=== PATIENT | male | born 1945 | race Caucasian/White ===

== ENCOUNTER 2016-12-04 12:18 | Outpatient (CLI) | payer MEDICARE ==
[~2016-12-04] VITALS: Ht 185.4 cm; Wt 82.3 kg
[2016-12-04 14:30] VITALS: Ht 185.4 cm; Wt 82.3 kg
--- NOTE | 2016-12-04 16:08 | NUR ---
1445 BLOOD CHECKED AT BEDSIDE BY THIS NURSE AND FAISAL MCGARRY RN, INITIATED BY ALARIS PUMP AT 50/CC/HR. 1500 DENIES PROBLEMS WITH TRANSFUSION, RATE INCREASED TO 125/CC/HR 1515 BLOOD CONTINUES WITHOUT PROBLEMS. 1530 IV SITE PATENT. DENIES PROBLEMS, RATE INCREASED TO 200/CC/HR PT TALKING ON PHONE. 1545 PT. WITH VISITOR. BLOOD GOING WELL. DECLINED OFFER OF LIQUIDS.
--- NOTE | 2016-12-04 16:14 | NUR ---
1610 XRAY NOTIFIED OF ROOM NUMBER AND OF RENAL ULTRASOUND ORDER.
--- NOTE | 2016-12-04 19:13 | NUR ---
1700 XRAY HERE TO DO US OF RENALS. 1740 DENIES PROBLEMS WITH TRANSFUSION, IV DC'D WITH CATH INTACT. RELEASED AMB.
== END 2016-12-04 17:45 | disposition home or self-care (01) ==
LOC: D.OPS 12:18
DX: D63.1 Anemia in chronic kidney disease (principal); N18.4 Chronic kidney disease, stage 4 (severe)

== ENCOUNTER → 2017-03-14 13:22 | Outpatient (CLI) | payer MEDICARE ==
[2016-12-04 14:30] VITALS: BMI 23.9
== END | disposition home or self-care (01) ==
LOC: D.RAD 13:22
DX: M25.552 Pain in left hip (principal)

== ENCOUNTER 2017-06-09 11:57 | Inpatient (IN) | payer MEDICARE ==
[~2017-06-09] VITALS: Ht 185.4 cm; Wt 86.4 kg
[2017-06-09 12:44] LABS: BASOPHILS 0.4 % (0-2); EOSINOPHILS 1.1 % (0-7); HEMATOCRIT 28.4 % (42.0-54.0); HEMOGLOBIN 9.4 g/dL (13.5-17.5); IMMATURE GRANULOCYTES 0.5 % (0-5); LYMPHOCYTES 16.6 % (15-50); MCH 33.1 pg (26.0-34.0); MCHC 33.1 g/dL (31.0-37.0); MEAN PLATELET VOLUME 9.7 fL (7.4-10.4); MONOCYTES 7.1 % (2-11); NEUTROPHILS 74.3 % (40-80); PLATELET COUNT 130 10x3/uL (130-400); RBC 2.84 10x6/uL (4.20-6.10); RDW 12.3 % (11.5-14.5); WBC 5.5 10x3/uL (4.8-10.8)
[2017-06-09 13:08] LABS: ALBUMIN 4.1 g/dL (3.4-5.0); ANION GAP 20.8 mmol/L (8-16); BILIRUBIN - TOTAL 0.35 mg/dL (0.2-1.3); CALCIUM 8.7 mg/dL (8.5-10.1); CARBON DIOXIDE 21.1 mmol/L (21.0-32.0); CREATININE - SERUM 5.3 mg/dL (0.6-1.3); POTASSIUM - SERUM 4.9 mmol/L (3.5-5.1); PROTEIN - SERUM 7.7 g/dL (6.4-8.2)
[2017-06-09] MEDS ORDERED: METOPROLOL TART50 MG PO (17:18)
[2017-06-09] MEDS ORDERED: OMEPRAZOLE40 MG PO (17:18)
[2017-06-09] MEDS ORDERED: GLUCOPHAGE1000 MG PO (17:19)
[2017-06-09] MEDS ORDERED: HYDROCODONE-APA1 TAB PO (17:19)
[2017-06-09] MEDS ORDERED: GLUCOTROL ER2.5 MG PO (17:21)
[2017-06-09] MEDS ORDERED: HCTZ25 MG PO (17:21)
[2017-06-09] MEDS ORDERED: COUMADIN2.5 MG PO (17:23)
[2017-06-09 17:42] VITALS: BP 134/62; BMI 25.1
[2017-06-09 19:22] LABS: % SATURATION 44 % (15-55); IRON 115 ug/dl (35-150); TOTAL IRON BIND CAPACITY 257 ug/dl (260-445); UNSAT IRON BIND CAPACITY 142 ug/dl (150-375)
[2017-06-09 21:00] VITALS: BP 136/73
[2017-06-10 00:24] VITALS: BP 156/73
[2017-06-10 05:31] VITALS: BP 140/67
[2017-06-10 06:22] LABS: MCHC 33.5 g/dL (31.0-37.0); MCV 98.6 fL (80.0-100.0); MEAN PLATELET VOLUME 9.6 fL (7.4-10.4); PLATELET COUNT 115 10x3/uL (130-400); RDW 12.4 % (11.5-14.5)
[2017-06-10 06:23] LABS: HEMATOCRIT 21.8 % (42.0-54.0); RBC 2.21 10x6/uL (4.20-6.10); WBC 2.8 10x3/uL (4.8-10.8)
[2017-06-10 06:24] LABS: HEMOGLOBIN 7.3 g/dL (13.5-17.5)
[2017-06-10 06:36] LABS: ANION GAP 18.1 mmol/L (8-16); CARBON DIOXIDE 21.8 mmol/L (21.0-32.0); CREATININE - SERUM 5.3 mg/dL (0.6-1.3); MAGNESIUM - SERUM 1.2 mg/dL (1.8-2.4); PHOSPHOROUS 4.3 mg/dL (2.5-4.9); POTASSIUM - SERUM 3.9 mmol/L (3.5-5.1)
[2017-06-10 07:03] LABS: BASOPHILS 0 % (0-2); EOSINOPHILS 2.3 % (0-7); HEMATOCRIT 21.4 % (42.0-54.0); IMMATURE GRANULOCYTES 0.4 % (0-5); LYMPHOCYTES 22.7 % (15-50); MCH 33.2 pg (26.0-34.0); MCHC 33.6 g/dL (31.0-37.0); MCV 98.6 fL (80.0-100.0); MEAN PLATELET VOLUME 9.1 fL (7.4-10.4); MONOCYTES 9.4 % (2-11); NEUTROPHILS 65.2 % (40-80); RBC 2.17 10x6/uL (4.20-6.10); RDW 12.3 % (11.5-14.5); WBC 2.6 10x3/uL (4.8-10.8)
[2017-06-10 07:05] LABS: LYMPHOCYTES 33 % (15-50); MONOCYTES 5 % (2-11); NEUTROPHILS 62 % (40-80); PLATELET ESTIMATE DECREASED
[2017-06-10 07:06] LABS: HEMOGLOBIN 7.2 g/dL (13.5-17.5); PLATELET COUNT 89 10x3/uL (130-400)
[2017-06-10 08:00] VITALS: BP 149/69
[2017-06-10 11:50] VITALS: BP 136/64
[2017-06-10 13:47] LABS: APPEARANCE CLEAR (CLEAR); BILIRUBIN NEGATIVE (NEGATIVE); COLOR STRAW (YELLOW); GLUCOSE NEGATIVE (NEGATIVE); KETONE NEGATIVE (NEGATIVE); NITRITE NEGATIVE (NEGATIVE); PROTEIN NEGATIVE (NEGATIVE); UROBILINOGEN NORMAL (NORMAL)
[2017-06-10 13:49] LABS: BACTERIA MODERATE /hpf (NONE SEEN); EPITHELIAL CELLS 0-5 /hpf (0-5)
[2017-06-10 14:35] LABS: APTT 27.5 SECONDS (22.8-39.4); INR 1.45 (0.85-1.17); PROTIME 17.1 SECONDS (11.6-15.0)
[2017-06-10 15:11] VITALS: BP 170/80
[2017-06-11 05:18] VITALS: BP 140/68
[2017-06-11 06:24] LABS: BASOPHILS 0.4 % (0-2); EOSINOPHILS 2.9 % (0-7); IMMATURE GRANULOCYTES 0.4 % (0-5); LYMPHOCYTES 28.2 % (15-50); MCH 32.2 pg (26.0-34.0); MCHC 33.3 g/dL (31.0-37.0); MCV 96.7 fL (80.0-100.0); MEAN PLATELET VOLUME 9.7 fL (7.4-10.4); MONOCYTES 8.3 % (2-11); NEUTROPHILS 59.8 % (40-80); PLATELET COUNT 99 10x3/uL (130-400); RDW 14.5 % (11.5-14.5); WBC 2.8 10x3/uL (4.8-10.8)
[2017-06-11 06:30] LABS: ANION GAP 17.1 mmol/L (8-16); CALCIUM 7.5 mg/dL (8.5-10.1); CARBON DIOXIDE 20.7 mmol/L (21.0-32.0); CREATININE - SERUM 4.9 mg/dL (0.6-1.3); POTASSIUM - SERUM 3.8 mmol/L (3.5-5.1)
[2017-06-11 06:31] LABS: HEMATOCRIT 26.7 % (42.0-54.0); HEMOGLOBIN 8.9 g/dL (13.5-17.5); RBC 2.76 10x6/uL (4.20-6.10)
[2017-06-11 10:52] VITALS: BP 152/87
[2017-06-11 13:18] VITALS: Ht 185.4 cm; Wt 86.4 kg
[2017-06-11] MEDS ORDERED: LEVAQUIN500 MG PO (15:00)
[2017-06-12 07:28] LABS: FOLATE (FOLIC ACID) - SERUM >20.0 ng/mL (>3.0)
[2017-06-12 10:22] LABS: ERYTHROPOIETIN 24.7 mIU/mL (2.6-18.5)
[2017-06-12 13:16] LABS: SPE - A/G RATIO 1.5 (0.7-1.7); SPE - ALBUMIN 3.1 g/dL (2.9-4.4); SPE - ALPHA-1 GLOBULIN 0.2 g/dL (0.0-0.4); SPE - ALPHA-2 GLOBULIN 0.7 g/dL (0.4-1.0); SPE - BETA GLOBULIN 0.7 g/dL (0.7-1.3); SPE - GAMMA GLOBULIN 0.5 g/dL (0.4-1.8); SPE - M-SPIKE Not Observed g/dL (Not Observed); SPE - TOTAL PROTEIN 5.2 g/dL (6.0-8.5)
== END 2017-06-11 16:09 | disposition home or self-care (01) | DRG 683 ==
LOC: D.ER 11:57 → D.EDHOLD 15:20 → D.M2 15:20 → D.EDHOLD 15:29 → D.SDCHOLD 15:29 → D.M2 16:02
PROVIDERS: Family Medicine; Internal Medicine Hematology & Oncology; Internal Medicine Nephrology
DX: I12.9 Hypertensive chronic kidney disease with stage 1 through stage 4 chronic kidney disease, or unspecified chronic kidney disease (principal); N39.0 Urinary tract infection, site not specified; N18.4 Chronic kidney disease, stage 4 (severe); D61.818 Other pancytopenia; D63.1 Anemia in chronic kidney disease; E11.22 Type 2 diabetes mellitus with diabetic chronic kidney disease; D53.9 Nutritional anemia, unspecified; E83.42 Hypomagnesemia

== ENCOUNTER 2017-07-11 07:32 | Day surgery (SDC) | payer MEDICARE ==
[~2017-07-11] VITALS: Ht 185.4 cm; Wt 85.3 kg
--- NOTE | ~2017-07-11 | OP ---
PATIENT NAME: RYAN TIPTON JR MEDICAL RECORD: [id number] :46 LOCATION:D[facility] ED ADMISSION DATE: SURGEON: ANNALISA PALM MD DATE OF OPERATION: 07/11/2017 REFERRING PHYSICIAN: Ramona Ray MD PRIMARY CARE PHYSICIAN: Cesar Neff MD PREOPERATIVE DIAGNOSIS: Chronic kidney disease stage IV. POSTOPERATIVE DIAGNOSIS: Chronic kidney disease stage IV. OPERATION PERFORMED: Creation of a Layla type brachiobasilic AV fistula as the first of 2 planned operations to create a translocated basilic vein AV fistula. ANESTHESIA: General with LMA per DEVOPS SOLUTIONS ARCHITECT. SURGEON: Annalisa Palm MD PREOPERATIVE NOTE: Mr. Tipton is a 71-year-old white male patient from [place], [place] who has progressing chronic renal impairment. He is followed by Dr. Ramona Ray and Dr. Neff. He was referred to me for hemodialysis access in anticipation of a coming need. Under general anesthesia with LMA per [employer]OPS SOLUTIONS ARCHITECT, the patient was prepped and draped in sterile manner. His basilic vein in the forearm and around the elbow was visible and appeared to be a suitable conduit for fistula. I placed a Mears drain as a proximal venous tourniquet and applied nitroglycerin paste to the intact skin of his arm and forearm and then examined him with Duplex ultrasound. Indeed the basilic vein was really the only satisfactory vein to use, the brachial artery was of good caliber and without atherosclerotic changes. I made a longitudinal incision on the medial aspect of the arm and its lower third and then in a hockey-stick like pattern, this was converted to a short transverse incision approaching the antecubital space. The basilic vein was exposed with sharp dissection. Tributaries were divided between Vicryl ties and Hemoclips. The brachial artery was then exposed and dissected from the surrounding structures and it was controlled proximally and distally with Silastic loops. The vein was clamped and then ligated distally with 3-0 Vicryl and it was transected and bevelled. It was then flushed with heparinized saline and checked for leaks and hydrostatically dilated. The artery was occluded and an arteriotomy about 7 mm in length was made and the artery was also flushed with heparinized saline. Both vessels were treated with topical papaverine. The end of the vein was then sutured to the side of the artery with continuous running 7-0 Prolene. After completing this anastomosis and the clamps and loops were released, the suture line was hemostatic and there developed immediately excellent flow with a thrill and pulsation within the fistula. The wound was irrigated and then infiltrated with 0.25% Marcaine without epinephrine. The wound was closed with interrupted inverted 3-0 Vicryl and running intracuticular 4-0 Monocryl and Dermabond glue. It was dressed with Maxorb Ag, Tegaderm and Cavilon skin prep. The patient was awakened and in a stable condition taken to the recovery room. There was no blood loss during the procedure. All sponges, instruments and OPERATIVE REPORT [id number] RYAN TIPTON JR needles were accounted for. No drain was used and no surgical specimen was submitted for histopathology. PLAN: The patient will be returned to the outpatient department shortly. He will be discharged to home when meets criteria. He will resume activities as tolerated and take his medications as preop and resume activities as desired. He is to leave the original operative dressing intact until he returns to see me in my office next week for his first postop followup appointment and that will be arranged by the outpatient nurses prior to his going home today. My plan will be to return him to the operating room within 2-4 weeks for the second stage to creation of the translocated fistula. TRANSINT:[id number] Voice Confirmation ID: [id number] DOCUMENT ID: [id number] ANNALISA PALM MD at 1241 CC: CESAR NEFF and RAMONA RAY [id number] DICTATION DATE: 07/11/17 1335 WAFER MOUNTER: 07/11/17 1435 [facility] 07/11/17 [id number] [place] [address]
[~2017-07-11 07:32] MED LIST: COUMADIN2.5 MG PO; GLUCOPHAGE1000 MG PO; GLUCOTROL ER2.5 MG PO; HCTZ25 MG PO; HYDROCODONE-APA1 TAB PO; LEVAQUIN500 MG PO; METOPROLOL TART50 MG PO; OMEPRAZOLE40 MG PO
[2017-07-11 08:09] LABS: BASOPHILS 0.4 % (0-2); HEMATOCRIT 30.6 % (42.0-54.0); HEMOGLOBIN 10.6 g/dL (13.5-17.5); IMMATURE GRANULOCYTES 0.4 % (0-5); LYMPHOCYTES 22.8 % (15-50); MCH 33.4 pg (26.0-34.0); MCHC 34.6 g/dL (31.0-37.0); MCV 96.5 fL (80.0-100.0); MEAN PLATELET VOLUME 9.8 fL (7.4-10.4); MONOCYTES 6.6 % (2-11); NEUTROPHILS 67.8 % (40-80); RBC 3.17 10x6/uL (4.20-6.10); RDW 13.7 % (11.5-14.5); WBC 5.6 10x3/uL (4.8-10.8)
[2017-07-11 08:11] LABS: PLATELET COUNT 129 10x3/uL (130-400)
[2017-07-11 08:21] LABS: INR 0.99 (0.85-1.17); PROTIME 12.7 SECONDS (11.6-15.0)
[2017-07-11 08:22] LABS: APTT 32.6 SECONDS (22.8-39.4)
[2017-07-11] MEDS ORDERED: FOLATE0.4 MG PO (08:31)
[2017-07-11] MEDS ORDERED: GLUCOTROL 5 MG T5 MG PO (08:32)
[2017-07-11 08:36] VITALS: BP 143/50; Ht 185.4 cm; Wt 85.3 kg
[2017-07-11 08:46] LABS: ANION GAP 23.2 mmol/L (8-16); CALCIUM 8.7 mg/dL (8.5-10.1); CARBON DIOXIDE 18.6 mmol/L (21.0-32.0); CREATININE - SERUM 5.7 mg/dL (0.6-1.3); POTASSIUM - SERUM 3.8 mmol/L (3.5-5.1)
[2017-07-11] MEDS ORDERED: ULTRAM50 MG PO (13:22)
== END 2017-07-11 14:40 | disposition home or self-care (01) ==
LOC: D.OPS 07:32
PROVIDERS: Surgery
DX: E11.22 Type 2 diabetes mellitus with diabetic chronic kidney disease (principal); I12.0 Hypertensive chronic kidney disease with stage 5 chronic kidney disease or end stage renal disease; N18.5 Chronic kidney disease, stage 5; Z99.2 Dependence on renal dialysis; Z01.812 Encounter for preprocedural laboratory examination

== ENCOUNTER 2017-08-19 05:29 | Day surgery (SDC) | payer MEDICARE ==
[~2017-08-19] VITALS: Ht 185.4 cm; Wt 85.3 kg
--- NOTE | ~2017-08-19 | OP ---
PATIENT NAME: RYAN TIPTON JR MEDICAL RECORD: [id number] :47 LOCATION:D[facility] ADMISSION DATE: SURGEON: ANNALISA PALM MD DATE OF OPERATION: 08/19/2017 PREOPERATIVE DIAGNOSIS: Chronic kidney disease V. POSTOPERATIVE DIAGNOSIS: Chronic kidney disease V. COMORBIDITIES: Hypertension and diabetes. REFERRING PHYSICIAN: Ramona Ray MD OPERATION PERFORMED: Second stage creation of left brachial artery to translocated basilic vein arteriovenous fistula. SURGEON: Annalisa Palm MD ANESTHESIA: General per TRANSPORTATION JOB TITLES with LMA. PREOPERATIVE NOTE: Mr. Tipton is a 71-year-old white male patient who is status post first stage creation of a translocated fistula on the left arm several weeks ago. I created a Layla type brachiobasilic fistula that has dilated and performed very nicely to this point. He is brought to the operating room now again as an outpatient with plans to go ahead and complete the translocation and reanastomosis. DESCRIPTION OF PROCEDURE: Under general anesthesia in supine position, the patient's left arm was prepped and draped in a sterile manner. An incision was made from axilla to antecubital space and the basilic vein fully mobilized. There was only one large communicating or perforating vein present which was multiply ligated and divided. The dissection was extended as far distally as the arterial anastomosis and a little bit of extra vein towards the antecubital space was harvested to give us some extra length. The vein was distally ligated and divided and a vascular clamp placed across the vein just proximal to the AA. The vein was flushed with heparinized saline and treated with topical papaverine. It was placed in a semilunar, very superficial subcutaneous tunnel, being careful to keep it from twisting and an end-to-end anastomosis done to the vein just above the original arterial anastomosis. This anastomosis was done with 7-0 Prolene and when completed and the occluding clamp was released, the suture line was hemostatic. There did not appear to be any indentation or stenosis. The fistula functioned beautifully, palpably and by handheld Doppler. The arm was irrigated with Ancef and gentamicin solution and infiltrated with 0.25% Marcaine without epinephrine. The wound was closed with a few interrupted inverted 3-0 Vicryl and running intracuticular 4-0 Monocryl, Dermabond glue and Maxorb AG, then Cavilon and Tegaderm. The patient was awakened and taken to the recovery room. Blood loss was about 30-50 cc and was certainly unreplaced. All sponges, instruments and needles were accounted for. No drain was used and no surgical specimen was submitted for histopathology. PLAN: The patient will be discharged to home today. We will ask home health to see him 3 times a week and change his dressing, clean his incision with Hibiclens and cover with clean dry gauze. He will come back to see me in my OPERATIVE REPORT [id number] RYAN TIPTON JR office in 2 weeks. He is given a prescription for Capitola 5/325, #20, one p.o. q.4 hours p.r.n. for pain, no refills of course. I will see him in my office in 2 weeks. TRANSINT:[id number] Voice Confirmation ID: [id number] DOCUMENT ID: [id number] ANNALISA PALM MD at 1544 CC: RAMONA RAY [id number] DICTATION DATE: 08/19/17 1020 DAYTIME CAREGIVER: 08/19/17 1140 [facility] 08/19/17 [facility] [address] [place] [address]
[~2017-08-19 05:29] MED LIST changes: +FOLATE0.4 MG PO; +GLUCOTROL 5 MG T5 MG PO; +ULTRAM50 MG PO
[2017-08-19 06:08] LABS: BASOPHILS 0.2 % (0-2); EOSINOPHILS 2.1 % (0-7); HEMATOCRIT 27.4 % (42.0-54.0); HEMOGLOBIN 9.1 g/dL (13.5-17.5); IMMATURE GRANULOCYTES 0.2 % (0-5); MCH 33.3 pg (26.0-34.0); MCHC 33.2 g/dL (31.0-37.0); MCV 100.4 fL (80.0-100.0); MEAN PLATELET VOLUME 9.7 fL (7.4-10.4); MONOCYTES 8.4 % (2-11); NEUTROPHILS 65.1 % (40-80); RBC 2.73 10x6/uL (4.20-6.10); RDW 13.7 % (11.5-14.5); WBC 4.3 10x3/uL (4.8-10.8)
[2017-08-19 06:20] LABS: PLATELET COUNT 103 10x3/uL (130-400)
[2017-08-19 06:33] LABS: INR 1.02 (0.85-1.17)
[2017-08-19 06:34] LABS: APTT 39.5 SECONDS (22.8-39.4)
[2017-08-19 06:41] LABS: ANION GAP 19.4 mmol/L (8-16); CALCIUM 8.8 mg/dL (8.5-10.1); CARBON DIOXIDE 20.6 mmol/L (21.0-32.0); CREATININE - SERUM 4.8 mg/dL (0.6-1.3)
[2017-08-19 06:52] VITALS: Ht 185.4 cm; Wt 85.3 kg
[2017-08-19] MEDS ORDERED: HYDROCODON-ACE1 EAC7 PO (10:08)
== END 2017-08-19 12:15 | disposition home or self-care (01) ==
LOC: D.OPS 05:29
PROVIDERS: Internal Medicine Nephrology
DX: E11.22 Type 2 diabetes mellitus with diabetic chronic kidney disease (principal); I12.0 Hypertensive chronic kidney disease with stage 5 chronic kidney disease or end stage renal disease; N18.5 Chronic kidney disease, stage 5; Z01.812 Encounter for preprocedural laboratory examination

== ENCOUNTER → 2017-10-17 13:27 | Outpatient (CLI) | payer MEDICARE ==
[2017-08-19 06:52] VITALS: BMI 24.8
[~2017-10-17 13:27] MED LIST changes: +HYDROCODON-ACE1 EAC7 PO
== END | disposition home or self-care (01) ==
LOC: D.US 13:27
DX: M79.661 Pain in right lower leg (principal); M79.662 Pain in left lower leg

== ENCOUNTER 2020-05-22 12:29 | Observation (INO) | payer MEDICARE ==
[~2020-05-22] VITALS: Ht 185.4 cm; Wt 75.5 kg
[~2020-05-22 12:29] MED LIST changes: +AZITHROMYCIN500 MG PO; +MUCINEX600 MG PO; +OMNICEF300 MG PO; +TESSALON PERLE100 MG PO
[2020-05-22] MEDS ORDERED: HTN MED? (12:37)
[2020-05-22] MEDS ORDERED: HYDROCODON-ACE1 EA10 PO (12:38)
[2020-05-22] MEDS ORDERED: GLUCOTROL ER2.5 MG PO (12:38)
[2020-05-22 13:25] LABS: ANION GAP 22.4 mmol/L (8-16); CALCIUM 8.8 mg/dL (8.5-10.1); CREATININE - SERUM 5.6 mg/dL (0.6-1.3); POTASSIUM - SERUM 3.4 mmol/L (3.5-5.1)
[2020-05-22 13:31] LABS: ALBUMIN 2.9 g/dL (3.4-5.0); BILIRUBIN - TOTAL 0.45 mg/dL (0.2-1.3); PROTEIN - SERUM 5.6 g/dL (6.4-8.2)
[2020-05-22 13:38] LABS: LYMPHOCYTE ABS# 0.85 10x3/uL (1.32-3.57); MCH 33.9 pg (26.0-34.0); MCHC 32.1 g/dL (31.0-37.0); MCV 105.5 fL (80.0-100.0); MEAN PLATELET VOLUME 9.1 fL (7.4-10.4); NEUTROPHIL ABS# 1.74 10x3/uL (1.78-5.38); PLATELET COUNT 93 10x3/uL (130-400); RDW 17.6 % (11.5-14.5); WBC 2.9 10x3/uL (4.8-10.8)
[2020-05-22 13:39] LABS: RBC 1.83 10x6/uL (4.20-6.10)
[2020-05-22 13:40] LABS: HEMATOCRIT 19.3 % (42.0-54.0); HEMOGLOBIN 6.2 g/dL (13.5-17.5)
[2020-05-22 14:41] LABS: BASOPHILS 1 % (0-2); LYMPHOCYTES 24 % (15-50); MONOCYTES 6 % (2-11); NEUTROPHILS 68 % (40-80)
[2020-05-22 14:42] LABS: PLATELET ESTIMATE DECREASED; ROULEAUX OCC
--- NOTE | 2020-05-22 15:08 | NUR ---
INITIATED 1ST UNIT OF PRBCS AT 125 ML/HR. WILL MONITOR.
--- NOTE | 2020-05-22 15:15 | NUR ---
PT. SANDRA. PRBCS WITHOUT ANY S/SX OF A REACTION. WILL CONT. TO MONITOR.
[2020-05-22 15:25] LABS: BILIRUBIN NEGATIVE (NEGATIVE); KETONE NEGATIVE (NEGATIVE); NITRITE NEGATIVE (NEGATIVE); UROBILINOGEN NORMAL mg/dL (< 2)
[2020-05-22 15:27] LABS: BACTERIA MANY HPF (NONE SEEN); WHITE CELLS - URINE >50 HPF (0-1)
[2020-05-22 16:42] VITALS: BP 140/75
--- NOTE | 2020-05-22 17:00 | NUR ---
PT ARRIVED VIA STRETCHER AT THIS TIME, RR EVEN NON LABORED. 1ST UNIT OF BLOOD COMPLETING UPON ARRIVAL. IV INFUSING WITHOUT DIFFICULTY. PT AAOX3, PLEASANT AND ANSWERS QUESTIONS APPROP. PLACED NON SKID SOCKS ON PT, PT REFUSED SCDS. EDUCATION GIVEN AT THIS TIME. TELE PLACED ON PT PER ORDER. PT DENIES ANY PAIN AT THIS TIME.
[2020-05-22] MEDS ORDERED: FUROSEMIDE20 MG (17:02)
[2020-05-22 17:04] VITALS: BP 143/76
--- NOTE | 2020-05-22 17:15 | NUR ---
2ND UNIT OF PRBC INTITIATED AT THIS TIME. PT LYING IN BED WITH HOB RAISED, RR EVEN NON LABORED. NO NEEDS VOICED. NURSE AT BEDSIDE.
[2020-05-22 17:16] LABS: INR 0.97 (0.85-1.17); PROTIME 11.9 SECONDS (11.6-15.0)
[2020-05-22 17:27] LABS: % SATURATION 48 % (15-55); IRON 81 ug/dl (35-150); TOTAL IRON BIND CAPACITY 168 ug/dl (260-445); UNSAT IRON BIND CAPACITY 87 ug/dl (150-375)
--- NOTE | 2020-05-22 17:30 | NUR ---
VS STABLE, RR EVEN NON LABORED. PRBC INFUSING WITHOUT DIFFICULTY. PT DENIES ANY NEEDS AT THIS TIME. CLWR.
[2020-05-22 19:06] VITALS: BP 122/60
--- NOTE | 2020-05-22 22:29 | NUR ---
PATIENT LYING SUPINE AAOX4, RESP EVEN AND NON LABORED, RESP EVEN AND NON LABORED, WATER AND CRACKERS PROVIDED, MEDICATIONS ADMINISTERED WITHOUT COMPLIACTIONS, NO FURTHER NEEDS AT THIS TIME, CLIR, BLP
[2020-05-22 22:36] LABS: HEMOGLOBIN 7.7 g/dL (13.5-17.5)
[2020-05-22 23:22] VITALS: BP 145/70
--- NOTE | 2020-05-23 00:58 | NUR ---
SCD'S REFUSED, PATIENT EDUCATION PROVIDED, PATIENT STILL REFUSED SCD'S.
--- NOTE | 2020-05-23 03:44 | NUR ---
I have reviewed this patient and I concur with the Shift Assessment completed by the Licensed Practical Nurse today this shift.
[2020-05-23 04:51] LABS: BASOPHILS 0.4 % (0-2); EOSINOPHILS 3.4 % (0-7); HEMATOCRIT 23.6 % (42.0-54.0); HEMOGLOBIN 7.8 g/dL (13.5-17.5); IMMATURE GRANULOCYTES 0.9 % (0-5); LYMPHOCYTE ABS# 0.45 10x3/uL (1.32-3.57); LYMPHOCYTES 19.1 % (15-50); MCH 31.8 pg (26.0-34.0); MCHC 33.1 g/dL (31.0-37.0); MEAN PLATELET VOLUME 9.1 fL (7.4-10.4); NEUTROPHIL ABS# 1.65 10x3/uL (1.78-5.38); NEUTROPHILS 70.2 % (40-80); PLATELET COUNT 81 10x3/uL (130-400); RDW 20.2 % (11.5-14.5); WBC 2.4 10x3/uL (4.8-10.8)
[2020-05-23 05:05] LABS: MCV 96.3 fL (80.0-100.0); RBC 2.45 10x6/uL (4.20-6.10)
[2020-05-23 05:11] LABS: ALBUMIN 2.6 g/dL (3.4-5.0); ANION GAP 18.8 mmol/L (8-16); BILIRUBIN - TOTAL 0.45 mg/dL (0.2-1.3); CALCIUM 8.1 mg/dL (8.5-10.1); CARBON DIOXIDE 16.1 mmol/L (21.0-32.0); CREATININE - SERUM 5.3 mg/dL (0.6-1.3); MAGNESIUM - SERUM 1.5 mg/dL (1.8-2.4); PROTEIN - SERUM 5.1 g/dL (6.4-8.2)
[2020-05-23 05:15] LABS: POTASSIUM - SERUM 2.9 mmol/L (3.5-5.1)
--- NOTE | 2020-05-23 06:10 | NUR ---
PATIENT HAS A CRITICAL GLUCOSE LAB OF 34, ORANGE JUICE WITH SUGAR PACKETS ADMINISTERED, GLUCOSE RECHECKED AND IS 38, ORANGE JUICE PROVIDED WITH TONY WADDELL AND STAT LAB ORDERED.
--- NOTE | 2020-05-23 06:59 | NUR ---
PT GIVEN PO GLUCOSE PER PROTOCOL FOR LOW BLOOD SUGAR. PT AWAKE AND ALERT, SITTING UP IN BED. RR EVEN NON LABORED, NO DISTRESS NOTED.
--- NOTE | 2020-05-23 07:44 | NUR ---
AM MEDS GIVEN PER EMAR. PT SITTING UP IN BED WATCHING TV. RR EVEN NON LABORED. FSBS OBTAINED BEING 87. NO NEEDS VOICED AT THIS TIME. PT EDUCATED REGARDING SCDS AND THE PURPOSE OF. PT REFUSED. WILL CONTINUE TO MONITOR. CLWR.
--- NOTE | 2020-05-23 07:47 | NUR ---
HORACE ESCALANTE NOTIFIED REGARDING PT REFUSAL OF SCDS. EDUCATION GIVEN.
[2020-05-23 08:05] VITALS: BP 141/66
--- NOTE | 2020-05-23 08:30 | NUR ---
IN PREVIOUS ASSESSMENT, PT IS LEFT ARM RESERVE.
--- NOTE | 2020-05-23 09:30 | NUR ---
PT REMOVED IV TO RIGHT AC BY ACCIDENT WHEN REPOSITIONING IN THE BED, CATHETER INTACT. DRESSING APPLIED. PT REFUSED WANTING IV PLACED AT THIS TIME, WILL ATTEMPT LATER. NO FURTHER NEEDS VOICED.
--- NOTE | 2020-05-23 10:01 | NUR ---
SPOKE WITH PT REGARDING DIAYLSIS TODAY, PT STATES HE DID NOT WANT DIALYSIS HERE AND HE WANTED TO GO HOME. CALLED PT DAUGHTER AND EXPLAINED SITUATION, SHE STATES SHE IS COMING TO THE HOSPITAL. JANIE BARRIOS AT THIS TIME ALSO.
--- NOTE | 2020-05-23 10:10 | NUR ---
DENIS COMING TO SPEAK TO PT
[2020-05-23 10:22] LABS: HEMATOCRIT 24.2 % (42.0-54.0); HEMOGLOBIN 8.2 g/dL (13.5-17.5)
[2020-05-23 11:19] VITALS: Ht 185.4 cm; Wt 75.5 kg
[2020-05-23 12:03] VITALS: BP 92/36
--- NOTE | 2020-05-23 12:42 | NUR ---
SPOKE WITH PT DAUGHTER AT THIS TIME. PT AGIGATED AND WANTING TO GO HOME. MD SPOKE WITH PT REGARDING PLAN OF CARE. NO NEEDS VOICED BY PT. LIGHTS TURNED OFF AND HEAD LOWERED PER REQUEST. CLWR.
[2020-05-23 15:46] VITALS: BP 121/63
[2020-05-23 16:10] LABS: HEMATOCRIT 23.5 % (42.0-54.0); HEMOGLOBIN 7.8 g/dL (13.5-17.5)
--- NOTE | 2020-05-23 17:15 | NUR ---
PT LYING IN BED WITH HOB RAISED EATING DINNER TRAY. RR EVEN NON LABORED. NO NEEDS VOICED. CLWR.
[2020-05-23 19:53] VITALS: BP 128/65
[2020-05-23 21:35] LABS: HEMOGLOBIN 7.7 g/dL (13.5-17.5)
--- NOTE | 2020-05-23 23:56 | NUR ---
PATIENT LYING SUPINE AAOX4, RESP EVEN AND NON LABORED, NO S/S OF DISTRESS, MEDICATIONS ADMINISTERED, BLOOD SUGAR 58, ORANGE JUICE AND 1 TUBE OF DEXTROSE GIVEN, CLIR, BLP
--- NOTE | 2020-05-24 04:45 | NUR ---
PATIENT REFUSED VITALS AND BLOOD SUGAR CHECK, PATIENT EDUCATED ON IMPORTANCE OF BOTH AND STILL REFUSED. ADALID BONILLA
--- NOTE | 2020-05-24 05:08 | NUR ---
PATIENT REFUSED TO LET LAB DRAW BLOOD, PATIENT EDUCATED ON IMPORTANCE OF LAB DRAWS, PATIENT STILL REFUSED, ADALID BONILLA
--- NOTE | 2020-05-24 07:52 | NUR ---
FSBS OBTAINED BEING 34. PROTOCOL FOLLOWED. PT AAOX3, PLEASANT. PT DENIES FEELING HYPOGLYCEMIC. PT GIVEN PO GLUCOSE AND JUICE. WILL CNTINUE TO MONITOR.
[2020-05-24 08:10] VITALS: BP 140/67
--- NOTE | 2020-05-24 08:15 | NUR ---
ATTEMPTED IV X2, UNSUCCESSFUL. WILL HAVE ANOTHER NURSE ATTEMPT
[2020-05-24 08:42] LABS: HEMATOCRIT 24.9 % (42.0-54.0); HEMOGLOBIN 8.3 g/dL (13.5-17.5); LYMPHOCYTE ABS# 0.53 10x3/uL (1.32-3.57); MCH 32.4 pg (26.0-34.0); MCHC 33.3 g/dL (31.0-37.0); MCV 97.3 fL (80.0-100.0); MEAN PLATELET VOLUME 9.4 fL (7.4-10.4); NEUTROPHIL ABS# 1.99 10x3/uL (1.78-5.38); PLATELET COUNT 91 10x3/uL (130-400); RBC 2.56 10x6/uL (4.20-6.10); RDW 20.8 % (11.5-14.5); WBC 2.8 10x3/uL (4.8-10.8)
[2020-05-24 09:05] LABS: ANION GAP 18.9 mmol/L (8-16); CALCIUM 8.4 mg/dL (8.5-10.1); CARBON DIOXIDE 14.5 mmol/L (21.0-32.0); CREATININE - SERUM 5.3 mg/dL (0.6-1.3)
[2020-05-24 09:11] LABS: ALBUMIN 2.8 g/dL (3.4-5.0); BILIRUBIN - TOTAL 0.34 mg/dL (0.2-1.3); MAGNESIUM - SERUM 1.6 mg/dL (1.8-2.4); PROTEIN - SERUM 5.4 g/dL (6.4-8.2)
[2020-05-24 09:14] LABS: POTASSIUM - SERUM 3.4 mmol/L (3.5-5.1)
--- NOTE | 2020-05-24 09:20 | NUR ---
NEW IV STARTED TO RIGHT UPPER ARM. IV FLUIDS AND ANTIBIOTIC INITIATED PER EMAR. PT LYING IN BED WITH HOB RAISED, VISITOR AT BEDSIDE. RR EVEN NON LABORED. ISNTRUCTED REGARDING IS. NO NEEDS VOICED. CLWR.
--- NOTE | 2020-05-24 09:23 | NUR ---
GLUCOSE PER LAB DRAW 48. PT RECEIVING IV D5W PER EMAR. PT AAOX3, WILL CONTINUE TO MONITOR.
--- NOTE | 2020-05-24 09:25 | NUR ---
NOTIFIED GABY DILLON REGARDING CRITICAL LAB VALUES.
--- NOTE | 2020-05-24 10:07 | NUR ---
FSBS 127 AT THIS TIME. PT RESTING IN BED WATCHING TV. NO NEEDS VOICED AT THIS TIME. CLWR.
--- NOTE | 2020-05-24 10:34 | NUR ---
IV TO RIGHT UPPER ARM INFILTRATED. IV REMOVED, DRESSING APPLIED. CATHETER INTACT.
--- NOTE | 2020-05-24 10:39 | NUR ---
SPOKE WITH SANDY AT THIS TIME REGARDING PT IV AND MULTIPLE ATTEMPTS PRIOR. SHE STATES SHE WILL SPEAK TO MD AT SEE WHAT HE WANTS TO DO NEXT.
[2020-05-24] MEDS ORDERED: VITAMIN B-1100 M1 PO (10:51)
[2020-05-24] MEDS ORDERED: NEPHRO-VITE RX1 TAB PO (10:51)
[2020-05-24] MEDS ORDERED: FLAGYL500 MG PO (10:52)
[2020-05-24] MEDS ORDERED: LEVOFLOXACIN500 MG PO (10:52)
--- NOTE | 2020-05-24 10:56 | NUR ---
PER SANDY PT DOES NOT NEED IV RESTARTED. PT WILL DO DIALYSIS TODAY AND POSSIBLY BE D/C'D HOME AND WILMA SPOKE WITH PT REGARDING BONE BIOPSY BEING COMPLETED OUTPATIENT. PT REQUESTED THAT. NO NEEDS VOICED BY PT. CLWR.
--- NOTE | 2020-05-24 11:29 | NUR ---
SPOKE WITH PT REGARDING D/C PLAN. PT UNDERSTANDS HE WILL RECEIVE DIALYSIS AND THEN BE D/C HOME.
[2020-05-24 11:38] VITALS: BP 143/66
--- NOTE | 2020-05-24 11:48 | NUR ---
PT TAKEN VIA WHEELCHAIR TO DIALYSIS AT THIS TIME.
--- NOTE | 2020-05-24 12:07 | NUR ---
SPOKE WITH PT DAUGHTER REGARDING PLAN OF CARE AND D/C PLAN.
--- NOTE | 2020-05-24 13:04 | NUR ---
LUNCH TRAY TAKEN TO PT AT THIS TIME. PT SLEEPING ON LEFT SIDE, RR EVEN NON LABORED. PT RECEIVING DIALYSIS AT THIS TIME.
[2020-05-24 14:34] LABS: ANISOCYTOSIS OCC; LYMPHOCYTES 22 % (15-50); MONOCYTES 8 % (2-11); NEUTROPHILS 70 % (40-80); PLATELET ESTIMATE DECREASED
--- NOTE | 2020-05-24 14:47 | NUR ---
PT OFF UNIT IN HD AT THIS TIME
--- NOTE | 2020-05-24 15:40 | NUR ---
PT ARRIVED TO UNIT, D/C INSTRUCTIONS GIVEN AT THIS TIME REGARDING FOLLOW UP APPOINTMENTS AND MEDICATIONS. PT STATES UNDERSTANDING. NO NEEDS VOICED AT THIS TIME. PT CALLED SON IN [place] FOR CLOTHING AND TRASPORTATION HOME. CLWR.
--- NOTE | 2020-05-24 16:35 | NUR ---
PT FAMILY ARRIVED FOR TRANSPORTATION HOME. ALL BELONGINGS GATHERED AT THIS TIME. NO IV TO D/C.
--- NOTE | 2020-05-24 16:40 | NUR ---
PT WHEELED TO PRIVATE VEHICLE WITH PCT AT THIS TIME, ALL BELONGINGS WITH PT TIME OF D/C. NO DISTRESS NOTED ON DEPARTURE.
--- NOTE | 2020-05-24 16:57 | MORECARE ---
CASE MANAGEMENT DISCHARGE SUMMARY PATIENT: RYAN TIPTON JR UNIT: [id number] ADM DATE: 05/22/20 AGE: 74 : 46 SEX: M ROOM/BED: D.5305 AUTHOR: AYAH GRANADOS PHYSICIAN: REFERRING PHYSICIAN: BREANA MAGALLON MD DATE OF SERVICE: 05/24/20 Discharge Plan Patient Name: RYAN TIPTON Facility: [facility]:[place] : 1945 Planned Disposition: Home Anticipated Discharge Date: 05/24/20 Discharge Date: 05/24/2020 Expected LOS: 2 Initial Reviewer: [email or web address] Initial Review Date: 05/24/2020 Generated: 05/24/20 5:57 pm Comments DCP- Discharge Planning Updated by [email or web address]: Faina Odom on 05/24/20 3:[address] Patient Name: RYAN TIPTON Admission Status: ER Accout number: [id number] Admission Date: 05-22-2020 : 1945 Admission Diagnosis: Attending: BREANA WILSON Current LOS: 2 Anticipated DC Date: 05-24-2020 Planned Disposition: Home Primary Insurance: [employer] MEDICARE ADV Discharge Planning Comments: CM received discharge orders. I met with him to discuss discharge planning/needs. He states he is going to stay with his daughter, Rosalind Mayo. States his daughter just lives a few minutes from the hospital. I have called Milka Painting, dialysis coordinator, and she states ok to return to his normal schedule at [facility]. He dialyzes on M and F at 10:30. I have informed him to return to his usual schedule and he voiced understanding. He states he is independent at home and Dr. Chaudhry is going to set him up with home health. I asked him to call Dr. Chaudhry's office in the morning to verify this and to inform him that you are at your daughter's home. He declines me to set up home health for him. No needs identified at this time. Home today. Oven Stripper: Faina Odom Coverage Notice Reviewer: [email or web address] - Lacy Xavier Notice Issued Date-Time: 05/22/2020 18:48 Notice Type: Medicare Outpatient Observation Notice Notice Delivered To: Patient Relationship to Patient: Self Human Resources Support Specialist Name: Delivery Method: HAND - Hand Delivered Melissa Days: Prior Verbal Notification: Recipient Understood Notice: Yes Recipient Signature: Yes Med Rec Note Co-signed by Attending: Coverage Notice Comment: Patient Name: RYAN TIPTON Page [phone] at 1657 All edits/amendments must be made on the electronic document DICTATION DATE: 05/24/201656 MARKET RESEARCH SENIOR PROJECT MANAGER: DOT 05/24/201656 RPT#: [id number] DC DATE:05/24/20 STATUS: DIS IN [facility] [address] [place] [address] END OF REPORT
--- NOTE | 2020-05-24 17:43 | NUR ---
DIALYSIS TREATMENT TODAY BEFORE DISCHARGE. TOLERATED TREATMENT WELL. PER DR. SNELL, GIVE TOBRAMYCIN 80MG IVPB AFTER DIALYSIS TREATMENT COMPLETE BEFORE REMOVING NEEDLES FROM [facility]. TOBRAMYCIN INFUSED AT END OF TREATMENT. PATIENT TOLERATED WELL. 2 LITERS REMOVED DURING DIALYSIS. BP STABLE ENTIRE TX REPORT GIVEN TO RITU ANGEL RN.
--- NOTE | 2020-05-25 08:02 | MORECARE ---
CASE MANAGEMENT DISCHARGE SUMMARY PATIENT: RYAN TIPTON JR UNIT: [id number] ADM DATE: 05/22/20 AGE: 74 : 46 SEX: M ROOM/BED: D.7719 AUTHOR: AYAH GRANADOS PHYSICIAN: REFERRING PHYSICIAN: BREANA MAGALLON MD DATE OF SERVICE: 05/25/20 Discharge Plan Patient Name: RYAN TIPTON Facility: [facility]:[place] : 1945 Planned Disposition: Home Anticipated Discharge Date: 05/24/20 Discharge Date: 05/24/2020 Expected LOS: 2 Initial Reviewer: [email or web address] Initial Review Date: 05/24/2020 Generated: 05/25/20 9:02 am Comments DCP- Discharge Planning Updated by [email or web address]: Faina Odom on 05/24/20 3:[address] Patient Name: RYAN TIPTON Admission Status: ER Accout number: [id number] Admission Date: 05-22-2020 : 1945 Admission Diagnosis: Attending: BREANA WILSON Current LOS: 2 Anticipated DC Date: 05-24-2020 Planned Disposition: Home Primary Insurance: [employer] MEDICARE ADV Discharge Planning Comments: CM received discharge orders. I met with him to discuss discharge planning/needs. He states he is going to stay with his daughter, Rosalind Mayo. States his daughter just lives a few minutes from the hospital. I have called Milka Painting, dialysis coordinator, and she states ok to return to his normal schedule at [facility]. He dialyzes on M and F at 10:30. I have informed him to return to his usual schedule and he voiced understanding. He states he is independent at home and Dr. Chaudhry is going to set him up with home health. I asked him to call Dr. Chaudhry's office in the morning to verify this and to inform him that you are at your daughter's home. He declines me to set up home health for him. No needs identified at this time. Home today. Procedure Tech: Faina Odom Coverage Notice Reviewer: [email or web address] - Lacy Xavier Notice Issued Date-Time: 05/22/2020 18:48 Notice Type: Medicare Outpatient Observation Notice Notice Delivered To: Patient Relationship to Patient: Self Instructor Psychiatric Aide Name: Delivery Method: HAND - Hand Delivered Melissa Days: Prior Verbal Notification: Recipient Understood Notice: Yes Recipient Signature: Yes Med Rec Note Co-signed by Attending: Coverage Notice Comment: Last DP export: 05/24/20 3:57 p Patient Name: RYAN TIPTON Page [phone] at 0802 All edits/amendments must be made on the electronic document DICTATION DATE: 05/25/20801 FLATTENING MACHINE OPERATOR: DOT 05/25/20801 RPT#: [id number] DC DATE:05/24/20 STATUS: DIS IN [facility] [address] [place] [address] END OF REPORT
== END 2020-05-24 16:40 | disposition home or self-care (01) ==
LOC: D.ER 12:29 → D.M2 16:49 → OBSVTIME 16:51 → D.M2 05-24 16:40
PROVIDERS: Family Medicine; ADMIT Family Medicine Adult Medicine; ATTEND Family Medicine Adult Medicine
DX: I12.0 Hypertensive chronic kidney disease with stage 5 chronic kidney disease or end stage renal disease (principal); N18.6 End stage renal disease; E11.22 Type 2 diabetes mellitus with diabetic chronic kidney disease; K56.7 Ileus, unspecified; D63.1 Anemia in chronic kidney disease; D61.818 Other pancytopenia; F10.20 Alcohol dependence, uncomplicated; Y90.9 Presence of alcohol in blood, level not specified; J61 Pneumoconiosis due to asbestos and other mineral fibers; Z99.2 Dependence on renal dialysis; N39.0 Urinary tract infection, site not specified; E87.6 Hypokalemia

== ENCOUNTER 2020-09-14 09:58 | Outpatient (CLI) | payer MEDICARE ==
[~2020-09-14] VITALS: Ht 185.4 cm; Wt 81.6 kg
[~2020-09-14 09:58] MED LIST changes: +FLAGYL500 MG PO; +FUROSEMIDE20 MG; +HTN MED?; +HYDROCODON-ACE1 EA10 PO; +LEVOFLOXACIN500 MG PO; +NEPHRO-VITE RX1 TAB PO; +VITAMIN B-1100 M1 PO
[2020-09-15 11:23] VITALS: BP 118/66; Ht 185.4 cm; Wt 81.6 kg
== END 2020-09-15 15:30 ==
LOC: D.OPS 09:58
PROVIDERS: ATTEND Internal Medicine Nephrology
DX: D64.9 Anemia, unspecified (principal)